=== PATIENT | female | born 1930 ===

== ENCOUNTER → 2017-02-25 18:34 | Outpatient (CLI) | payer MEDICARE ==
[2017-02-25 20:13] LABS: BASOPHILS 0.1 % (0-2); EOSINOPHILS 0.5 % (0-7); HEMATOCRIT 38.8 % (36.0-48.0); HEMOGLOBIN 12.3 g/dL (12-16); IMMATURE GRANULOCYTES 0.8 % (0-5); LYMPHOCYTES 6.6 % (15-50); MCH 30.9 pg (26.0-34.0); MCHC 31.7 g/dL (31.0-37.0); MCV 97.5 fL (80.0-100.0); MEAN PLATELET VOLUME 10.3 fL (7.4-10.4); MONOCYTES 3.5 % (2-11); NEUTROPHILS 88.5 % (40-80); PLATELET COUNT 140 10x3/uL (130-400); RBC 3.98 10x6/uL (4.00-5.40); RDW 13.4 % (11.5-14.5); WBC 13.3 10x3/uL (4.8-10.8)
[2017-02-25 20:28] LABS: ANION GAP 10.7 mmol/L (8-16); CALCIUM 8.7 mg/dL (8.5-10.1); CARBON DIOXIDE 30.9 mmol/L (21.0-32.0); CREATININE - SERUM 1.4 mg/dL (0.6-1.3); POTASSIUM - SERUM 4.6 mmol/L (3.5-5.1)
== END | disposition home or self-care (01) ==
LOC: D.LABREF 18:34
PROVIDERS: Neurological Surgery
DX: R78.81 Bacteremia (principal); I51.9 Heart disease, unspecified; I25.10 Atherosclerotic heart disease of native coronary artery without angina pectoris; L03.90 Cellulitis, unspecified